=== PATIENT | male | born 1990 | race Caucasian/White ===

== ENCOUNTER 2019-03-24 13:53 | Emergency (ER) | payer OTHER ==
[~2019-03-24] VITALS: Ht 187.9 cm; Wt 79.4 kg
[~2019-03-24 13:53] MED LIST: KEFLEX500 MG PO; MOTRIN800 MG PO; NKHM
[2019-03-24] MEDS ORDERED: VIBRAMYCIN100 MG PO (14:26)
== END 2019-03-24 14:35 | disposition home or self-care (01) ==
LOC: ED 13:53
DX: S20.461A Insect bite (nonvenomous) of right back wall of thorax, initial encounter (principal); W57.XXXA Bitten or stung by nonvenomous insect and other nonvenomous arthropods, initial encounter; Y93.89 Activity, other specified; Y92.89 Other specified places as the place of occurrence of the external cause; Y99.8 Other external cause status